=== PATIENT | male | born 1990 | race Caucasian/White ===

== ENCOUNTER 2023-05-17 14:26 | Emergency (ER) | payer OTHER, SELFPAY ==
[2023-05-17 14:30] VITALS: BP 150/88; PULSE 98; RESP 26; TEMP 36.4; O2SAT 95; BMI 30.4
--- NOTE | 2023-05-17 14:33 | RAD_ITS ---
STUDY: X-RAY CHEST REASON FOR EXAM: Male, 32 years old. SOB TECHNIQUE: Single AP portable view of the chest. COMPARISON: None. FINDINGS: EKG electrodes are seen. Minimal bibasilar atelectasis. There is no demonstrated pleural abnormality. Normal size heart. Normal mediastinum and koffi. Normal visualized pulmonary arteries. Normal visualized aortic arch and descending thoracic aorta. Normal visualized thoracic spine. Normal visualized ribs, clavicles, and shoulders. There is no demonstrated abnormality of the visualized soft tissue structures of the upper abdomen. RAD/Chest 1 View (Portable) IMPRESSION: Minimal bibasilar atelectasis. Electronically Signed: Juliocesar Sher MD at 14:52 EST ,
--- NOTE | 2023-05-17 15:08 | CT_ITS ---
STUDY: CT CERVICAL SPINE WITHOUT CONTRAST REASON FOR EXAM: Male, 32 years old. neck trauma RADIATION DOSAGE (If Supplied By Facility): CTDIvol = ( 26.62 ) mGy, DLP = ( 616.67 ) mGycm TECHNIQUE: High resolution transaxial imaging was performed without contrast material. Sagittal and coronal images were reconstructed. Individualized dose optimization techniques were used for this CT. COMPARISON: None FINDINGS: Normal craniovertebral junction. Normal anterior atlantoaxial articulation. Normal odontoid process. Normal cervical lordosis. Normal vertebral bodies and posterior osseous elements. C2-3: Normal endplates. Normal disc height and morphology. Normal central canal and intervertebral neuroforamina. C3-4: Normal endplates. Normal disc height and morphology. Normal central canal and intervertebral neuroforamina. C4-5: Normal endplates. Normal disc height and morphology. Normal central canal and intervertebral neuroforamina. C5-6: Normal endplates. Normal disc height and morphology. Normal central canal and intervertebral neuroforamina. C6-7: Normal endplates. Normal disc height and morphology. Normal central canal and intervertebral neuroforamina. C7-T1: Normal endplates. Normal disc height and morphology. Normal central canal and intervertebral neuroforamina. Normal visualized soft tissue structures. CT/Spine Cervical without Contras IMPRESSION: Normal unenhanced CT examination of the cervical spine. Electronically Signed: Matteo Santana MD at 16:58 EST ,
--- NOTE | 2023-05-17 15:08 | CT_ITS ---
STUDY: CT BRAIN WITHOUT CONTRAST REASON FOR EXAM: Male, 32 years old. seizure, trauma RADIATION DOSAGE (If Supplied By Facility): CTDIvol = ( 44.99 ) mGy, DLP = ( 779.24 ) mGycm TECHNIQUE: Transaxial CT imaging of the brain was performed without administration of intravenous contrast material. Individualized dose optimization techniques were used for this CT. COMPARISON: No relevant priors. FINDINGS: Normal soft tissue structures. Normal calvarium. Normal size ventricles and extra-axial spaces for the patient''s age. Normal white matter tracts of the cerebral hemispheres. Normal basal ganglia and thalami. Normal brainstem. Normal cerebellum. There is no intracranial hemorrhage. There are no findings of an acute ischemic infarction. Normal visualized paranasal sinuses. CT/Brain/Head without Contrast IMPRESSION: Normal unenhanced CT scan of the brain. Electronically Signed: Matteo Santana MD at 17:00 EST ,
--- NOTE | 2023-05-17 15:10 | CT_ITS ---
STUDY: CT CHEST, ABDOMEN T PELVIS WITH CONTRAST REASON FOR EXAM: Male, 32 years old. trauma, sternal pain, sob, upper/lower back trauma RADIATION DOSAGE (If Supplied By Facility): CTDIvol = ( 26.32 ) mGy, DLP = ( 2684.17 ) mGycm TECHNIQUE: Transaxial imaging was performed following intravenous administration of IV 100mL Isovue-370. Individualized dose optimization techniques were used for this CT. COMPARISON: Chest x-ray from today. FINDINGS: CHEST The lungs are normal. There is no demonstrated pleural abnormality. Cardiomegaly. Normal mediastinum. Normal hilar regions. Normal unenhanced pulmonary arteries. Normal aorta arch and descending thoracic aorta. Normal osseous structures. ABDOMEN Normal liver. Normal gallbladder and extrahepatic biliary system. Normal spleen. Normal pancreas. Normal bilateral adrenal glands. Normal right kidney. Normal left kidney. Normal visualized stomach. Normal small intestine. Normal colon. The appendix is visualized and appears normal. Normal abdominal aorta. Normal inferior vena cava. Normal retroperitoneum. Normal abdominal wall. Normal osseous structures. PELVIS Normal urinary bladder. Normal visualized small intestine. Normal visualized colon. There is no pelvic fluid. There is no pelvic lymphadenopathy or mass lesion. Normal visualized pelvic arteries. Normal abdominal wall. Normal osseous structures. CT/CT Chest, Abd, Pel w/Contrast IMPRESSION: Normal enhanced CT chest, abdomen T pelvis examination. Electronically Signed: Matteo Santana MD at 17:10 EST ,
--- NOTE | 2023-05-17 15:11 | EX.ED.DYSGE1 ---
HPI History of Present Illness Chief Complaint: Seizure Informant: patient Narrative Narrative: Patient apparently had a seizure while at the [employer] store today. Apparently as a result of this he crashed into nearby shelving, and was found nearby multiple shattered bottles of pickles. The patient states he remembers feeling his eyes suddenly doing something really unusual in the next and he remembers he was here in the ER. States he has had 1 other seizure while awake, he saw neurology and had an EEG because of suspicion of having seizures when he was asleep. He takes no antiepileptic medications. He cannot remember the neurologist that he saw or where he had the EEG done. He denies using any drugs or alcohol recently. [facility] Medical History (Updated 05/17/23 @ 18:[address] Christopher Salgado MD) Hypertension Seizure Allergy/AdvReac Type Severity Reaction Status Date / Time amoxicillin Allergy Intermediate RASH Verified 05/17/23 15:26 Social History Smoking Status: Never smoker ROS ROS ED Constitutional Constitutional ED: Denies chills or fever(s) Eyes Eyes: Denies change in vision or diplopia ENT ENT ED: Denies ear pain, epistaxis, facial pain or rhinorrhea Cardiovascular Cardiovascular: Reports chest pain; Denies palpitations Respiratory/Chest Respiratory/Chest: Denies cough or dyspnea Gastrointestinal Gastrointestinal: Denies abdominal pain, diarrhea, melena, nausea or vomiting Genitourinary Genitourinary ED: Denies dysuria or hematuria Musculoskeletal Musculoskeletal: Reports back pain; Denies extremity pain or neck pain Integumentary Denies abscess, Abrasions, laceration or rash Neurologic Neurologic: Reports as per HPI, memory loss and seizures; Denies confusion, headache(s), paresthesias or weakness EXAM Physical Exam Const Vital Signs: 05/17/23 14:30 05/17/23 17:00 05/17/23 18:00 Temperature 97.6 F L Temperature Source Temporal Pulse Rate 98 92 Respiratory Rate 26 H 17 Blood Pressure 150/88 H 170/113 H 165/109 H Blood Pressure Mean 108 126 127 Pulse Ox 95 Oxygen Delivery Method Room Air Positive well nourished and well developed General Appearance ED: well developed and NAD HEENT Reports TM's clear and nasal mucous membranes and turbinates normal HEENT Narrative: abrasion anterior tongue w/o laceration or dental trauma. no mastoid tenderness/hematoma/ecchymosis. No csf otorhinorrhea. atraumatic Face and Sinus: Negative for facial tenderness Tympanic Membrane ED: Yes TM's clear Eyes PERRL and EOMs intact bilaterally Visual Acuity: other Other Details: no entrapment or pain with extraocular movements Neck full ROM and supple General: Negative for tenderness Chest Wall inspection of chest normal Chest: symmetrical chest wall rise and tenderness sternum (w/o deformity, obvious signs of trauma, or crepitance); Negative for crepitus Resp normal respiratory effort and clear to auscultation bilaterally Percussion: other equal BS bilat Cardio no murmurs Rate: regular rate Rhythm: regular rhythm GI normal to inspection, nondistended, normoactive bowel sounds, soft to palpation and non-tender Back/Spine normal ROM Back/Spine Narrative: Tender ecchymotic/purpuric areas left upper back and left mid-lower back over the CVA. No midline tenderness. No subcutaneous emphysema, pain is worse when patient takes deep breaths. Cervical Spine: Negative for cervical spine tenderness Thoracic Spine / Upper Back: Negative for thoracic spinal tenderness Lumbar Spine / Lower Back: Negative for lumbar spinal tenderness Extremity normal to inspection and full ROM General Extremety ED: Negative for tenderness Neuro oriented x3, CN's II-XII intact bilaterally, moves all extremities, no focal motor deficits and no sensory deficits noted [place] Coma Scale: document GCS findings Spontaneous Obeys Commands Oriented 15 Sensorium / Orientation: awake and alert Psych mental status grossly normal and thought process normal Skin no wounds Lesions: no lesions Rashes: no rashes MDM MDM MDM Narrative Medical decision making narrative: We did a stat portable chest x-ray given his pain and trouble breathing due to pain, on my interpretation I see no pneumothorax or obvious traumatic abnormality. His hemodynamics are stable and clinically he is stable. He was given pain medication IV fluids, we checked some labs including lactate, and basically sent him for weinberg scanning due to trauma, concerning for his head, sternum/chest, as well as evidence of trauma to the left upper hemithorax, and the left kidney with CVA ecchymosis and tenderness. Given the possibility of distracting injury his neck was included in the CT scans. I reviewed these images as well as the report which I agree with, they are all negative for any acute injury. I reevaluated the patient after given fentanyl he is doing a little better but asking for something nonnarcotic for pain so he was given Toradol IV. He is very tender in the sternum where I suspect he injured, do not suspect this is cardiac. Family member asking for an EKG because there is a family history of heart problems. He said this because he was having chest pain. I explained to him that he fell and injured his sternum and the CT shows no fracture but that is why he is having chest pain. I told him we would be happy to perform the EKG anyway, although I could plainly see that his rhythm is normal without ectopy on the monitor throughout his stay. He then said he declined the EKG although was still offered. His lactate is elevated consistent with a true epileptic seizure. In asking the patient about his history, he states he saw neurology at [facility] and that they were working him up for having seizures in his sleep and this was may be the second seizure he is ever had while awake. I called neurology on-call at [facility], talk to one of the ICU residents. She said there was no record of him being seen at [facility] ever. However in care everywhere, she found that he was seen at [facility] for seizures and had an EEG that was unremarkable and at that time alcohol was an issue. I discussed this with the patient, he states it is still an issue. He states his last drink was yesterday, he has had no alcohol today and it is 5:30 PM, and he has curb his alcohol to about half of a bottle per day of whiskey, from 1 bottle per day. Given all of this my suspicion is that he had an alcohol withdrawal seizure. Alcohol abuse also explains his elevated AST and ALT. He does not feel shaky or confused during withdrawal right now. I asked him about his intentions. He does not want inpatient detox, he intends to continue drinking but continue to try curbing so that he can stop drinking himself. He was given addiction medicine referral/information for follow-up and advised not to drive and to follow-up with neurology, he wanted somebody local so he was given those resources as well. History & Record Review Additional record(s) reviewed:: No prior records Lab Data Attestation: I reviewed the patient's lab results. Labs: Laboratory Results - last 24 hr 05/17/23 05/17/23 05/17/23 14:37 15:18 17:25 WBC 14.3 H RBC 4.51 L Hgb 14.7 Hct 42.8 MCV 94.9 H MCH 32.6 H MCHC 34.3 RDW Std Deviation 44.4 H RDW Coeff of Lele 12.7 Plt Count 248 MPV 10.8 Neut % (Auto) Not Reportable Absolute Neuts (auto) 9.3 H Absolute Lymphs (auto) 3.58 Total Counted 100 Neutrophils % (Manual) 61 Band Neutrophils % 4 Lymphocytes % (Manual) 25 Monocytes % (Manual) 8 Metamyelocytes % 1 Myelocytes % 1 H Diff Path Review August foll Sodium 139 Potassium 4.2 Chloride 105 Carbon Dioxide 16.0 L Anion Gap 18 H BUN 11 Creatinine 1.09 Estim Creat Clear Calc 114.51 Est GFR (MDRD) Af Amer 99 Est GFR (MDRD) Non-Af 82 BUN/Creatinine Ratio 10.1 Glucose 176 H Lactic Acid 6.4 H* Calcium 9.6 Total Bilirubin 0.30 AST 195 H ALT 291 H Alkaline Phosphatase 96 Total Protein 7.5 Albumin 3.9 Globulin 3.6 Albumin/Globulin Ratio 1.1 Urine Color Yellow Urine Clarity Clear Urine pH 6.0 Ur Specific [place] 1.015 Urine Protein 30 H Urine Glucose (UA) Normal Urine Ketones 5 H Urine Occult Blood 10 H Urine Nitrite Negative Urine Bilirubin Negative Urine Urobilinogen Normal Ur Leukocyte Esterase Negative Urine RBC 0 SEEN Urine WBC 0 SEEN Ur Squamous Epith Cells 0 SEEN Urine Bacteria 0 SEEN Urine Mucus 0 SEEN Radiography Diagnostic Testing: Clinical Impression(s) from Imaging Studies Chest X-Ray 05/17/23 14:33 IMPRESSION: Minimal bibasilar atelectasis. Electronically Signed: Juliocesar Sher MD at 14:52 EST , Brain CT 05/17/23 15:08 IMPRESSION: Normal unenhanced CT scan of the brain. Electronically Signed: Matteo Santana MD at 17:00 EST , Cervical Spine CT 05/17/23 15:08 IMPRESSION: Normal unenhanced CT examination of the cervical spine. Electronically Signed: Matteo Santana MD at 16:58 EST Reading Location ID and State: [address] [place] [address] Tel , Service support , Chest/Abdomen/Pelvis CT 05/17/23 15:10 IMPRESSION: Normal enhanced CT chest, abdomen T pelvis examination. Electronically Signed: Matteo Santana MD at 17:10 EST Reading Location ID and State: [facility] / [place] Tel , Service support , Rhythm Strip Rhythm Strip: Sinus Rhythm Rate: 95 Ectopy: None EKG Initial EKG: Attestation: I personally reviewed and interpreted this EKG as follows: Interpretation: Sinus Rhythm and No Acute Injury Pattern Management Discussion w/another healthcare provider: [employer] (Neurology [facility], see above) Discharge Plan Triage Chief Complaint: Seizure ED Provider: Christopher Salgado Dx/Rx/DC Orders Clinical Impression: Contusion of sternum, Back contusion, Alcohol abuse, Alcohol withdrawal seizure Instructions: ED SEIZURE Alcohol Withdrawal Primary Care Provider: Care Physician,No Primary Referrals: Laurent San MD [Non-Staff -Ordering Privileges] - As soon as possible (NO DRIVING until seen and cleared by neurology; if easier to see/get into Neurology at [facility], that is just fine too) [facility] [Non-Staff] - As Needed (if you want help with quitting drinking) Disposition Disposition: Home, Self Care Discharge Date/Time: 05/17/23 18:12
[2023-05-17] MEDS: 0.9% Normal Saline (1000mL) 1,000 ML 999 ML IV (15:23)
[2023-05-17] MEDS: Ondansetron 4 MG/2 ML Vial IV (15:23)
[2023-05-17] MEDS: fentaNYL 100 MCG/2 ML Ampul 50 MCG IV (15:24)
[2023-05-17 15:58] LABS: Hematocrit 42.8 % (40-54); Hemoglobin 14.7 g/dL (13.0-16.5); Mean Corp Hgb Conc 34.3 g/dL (32-36); Mean Corpuscular Hgb 32.6 pg (27.0-32.0); Mean Corpuscular Volume 94.9 fL (80-94); Mean Platelet Vol. 10.8 fl (6.2-12.0); POSITIVE COUNT YES; POSITIVE MORPHOLOGY YES; Platelet Count 248 K/mm3 (150-450); RBC Distribution Width CV 12.7 % (11.6-14.6); RBC Distribution Width SD 44.4 fl (35.1-43.9); Red Blood Count 4.51 M/mm3 (4.6-6.2); White Blood Count 14.3 K/mm3 (4.4-11.0)
[2023-05-17 16:06] LABS: ALB/GLOB Ratio 1.1 RATIO (0.9-2.4); AST(SGOT) 195 U/L (15-37); Alanine Aminotransfer ALT/SGPT 291 U/L (16-61); Albumin, Serum 3.9 g/dL (3.2-5.0); Alkaline Phosphatase 96 U/L (45-117); Anion Gap 18 (5-15); BUN 11 mg/dL (7-18); BUN/Creat Ratio 10.1 RATIO (10-20); Calcium,Total 9.6 mg/dL (8.5-10.1); Chloride 105 mmol/L (98-107); Creatinine, Serum 1.09 mg/dL (0.70-1.30); Differential Indicated MANUAL DIFF; EST Glomerular Filtration Rate 82 mL/min (>60); Est Glom Filt Rate - Afr Amer 99 mL/min (>60); Estimated Creatinine Clearance 114.51 ml/min; Globulin 3.6 g/dL (2.2-4.2); Glucose 176 mg/dL (74-106); Potassium 4.2 mmol/L (3.5-5.1); Protein, Total 7.5 g/dL (6.4-8.2); Sodium Level 139 mmol/L (136-145)
[2023-05-17 16:17] LABS: Lactic Acid 6.4 mmol/L (0.4-1.9)
[2023-05-17 16:36] LABS: Lymphocyte 25 % (19-41); Metamyelocyte 1 % (0-1); Monocyte 8 % (0-10); Myelocyte 1 % (0-0); Neutrophil-Band 4 % (0-5); Neutrophil-Segmented 61 % (47-70); Total Cells Counted 100 (MANUAL DIFF)
[2023-05-17 16:37] LABS: Absolute Lymphocyte Count 3.58 X10^3/uL (0.83-4.51); Absolute Neutrophil Count 9.3 X10^3/uL (2.0-7.7)
[2023-05-17 17:00] VITALS: BP 170/113
[2023-05-17 17:32] LABS: Bacteria 0 SEEN /hpf (None Seen); Mucous, Urine 0 SEEN /hpf (<or=2+); Red Blood Cells-Urine 0 SEEN /hpf (0-5); Squamous Epithelial Cells - UA 0 SEEN /hpf (0-5); White Blood Cells 0 SEEN /hpf (0-5)
[2023-05-17 17:37] LABS: Color, Urine Yellow (Yellow); Glucose, Dipstick Normal (Normal); Ketone-Dipstick 5 mg/dl (Negative); Leukocyte Esterase-Dipstick Negative /ul (Negative); Nitrite-Dipstick Negative (Negative); Occult Blood-Urine 10 /ul (Negative); Protein-Dipstick 30 mg/dl (Negative); Specific Gravity, Urine 1.015 (1.002-1.030); Urine Bilirubin Dipstick Negative (Negative); Urine Clarity Clear (Clear); Urine Urobilinogen Normal (Normal)
[2023-05-17] MEDS: Ketorolac 30 MG/ML Syringe IV (17:53)
--- NOTE | 2023-05-17 17:59 | ED.RN ---
Pt brother in room concerned that no ekg was done this visit and pt c/o chest pain and family history of cardiac events. Dr. Salgado informed of brothers concern and ekg ordered. Pt and brother informed of orders. At that time pt decided he's rather not stay for the ekg and will follow up with pcp. Telemetry monitoring reviewed with pt and brother and shows NSR.
[2023-05-17 18:00] VITALS: BP 165/109; PULSE 92; RESP 17
[2023-05-17 19:29] LABS: Reflex Lactate? Y
[2023-05-20 13:39] LABS: Pathologist Review Reviewed
== END 2023-05-17 18:12 | disposition home or self-care (01) ==
LOC: ED 15:54
PROVIDERS: Emergency Provider Emergency Medicine; Visit Provider Emergency Medicine
DX: G40.509 Epileptic seizures related to external causes, not intractable, without status epilepticus (principal); S20.219A Contusion of unspecified front wall of thorax, initial encounter; F10.10 Alcohol abuse, uncomplicated; R07.9 Chest pain, unspecified; S20.229A Contusion of unspecified back wall of thorax, initial encounter; I10 Essential (primary) hypertension; Y90.9 Presence of alcohol in blood, level not specified; W18.09XA Striking against other object with subsequent fall, initial encounter; Y92.512 Supermarket, store or market as the place of occurrence of the external cause
CPT/HCPCS: 70450; 71045; 71260; 72125; 74177; 80053; 81001; 83605; 85025; 96361; 96374; 96375; 99282; J7030; Q9967; A4216; J2405